=== PATIENT | female | born 1970 ===

== ENCOUNTER → 2020-08-04 14:28 | Outpatient (CLI) | payer OTHER | END | disposition home or self-care (01) | LOC: LAB 14:28 | PROVIDERS: ATTEND Orthopaedic Surgery | DX: D64.89 Other specified anemias (principal); E88.89 Other specified metabolic disorders; D68.8 Other specified coagulation defects; N39.0 Urinary tract infection, site not specified; Z22.322 Carrier or suspected carrier of Methicillin resistant Staphylococcus aureus; I10 Essential (primary) hypertension; I49.8 Other specified cardiac arrhythmias; Z76.89 Persons encountering health services in other specified circumstances ==

== ENCOUNTER → 2020-08-22 | Day surgery (SDC) | payer OTHER | END | disposition home or self-care (01) | LOC: ADM 08-15 10:00 → CIR.AMB 07:00 | PROVIDERS: ATTEND Orthopaedic Surgery | DX: M76.61 Achilles tendinitis, right leg (principal); M77.51 Other enthesopathy of right foot and ankle; Z20.828 Contact with and (suspected) exposure to other viral communicable diseases | CPT/HCPCS: 28300; 27650; 28002; C1776 ==

== ENCOUNTER → 2020-10-06 06:22 | Outpatient (CLI) | payer OTHER | END | disposition home or self-care (01) | LOC: LAB 06:22 | PROVIDERS: ATTEND Orthopaedic Surgery | DX: Z86.72 Personal history of thrombophlebitis (principal); E55.9 Vitamin D deficiency, unspecified; M85.88 Other specified disorders of bone density and structure, other site; E88.89 Other specified metabolic disorders; E56.1 Deficiency of vitamin K ==

== ENCOUNTER → 2020-10-09 06:30 | Outpatient (CLI) | payer OTHER | END | disposition home or self-care (01) | LOC: LAB 06:30 | PROVIDERS: ATTEND Orthopaedic Surgery | DX: Z86.72 Personal history of thrombophlebitis (principal) ==

== ENCOUNTER 2020-11-08 13:36 | Outpatient (CLI) | payer OTHER | END 2020-11-08 13:47 | disposition home or self-care (01) | LOC: RAD 13:36 | PROVIDERS: ATTEND Orthopaedic Surgery | DX: M76.61 Achilles tendinitis, right leg (principal); M79.671 Pain in right foot ==

== ENCOUNTER 2021-02-08 14:06 | Outpatient (CLI) | payer OTHER | END 2021-02-08 14:16 | disposition home or self-care (01) | LOC: RAD 14:06 | PROVIDERS: ATTEND Orthopaedic Surgery | DX: M25.571 Pain in right ankle and joints of right foot (principal) ==

== ENCOUNTER 2021-08-15 11:35 | Outpatient (CLI) | payer OTHER | END 2021-08-15 11:44 | disposition home or self-care (01) | LOC: LAB 11:35 | PROVIDERS: ATTEND Orthopaedic Surgery | DX: N28.89 Other specified disorders of kidney and ureter (principal) ==

== ENCOUNTER 2021-09-12 07:39 | Outpatient (CLI) | payer OTHER | END 2021-09-12 07:42 | disposition home or self-care (01) | LOC: RAD 07:39 | PROVIDERS: ATTEND Orthopaedic Surgery | DX: M76.61 Achilles tendinitis, right leg (principal) ==

== ENCOUNTER 2021-10-05 07:59 | Outpatient (CLI) | payer OTHER | END 2021-10-05 08:09 | disposition home or self-care (01) | LOC: MRI 07:59 | PROVIDERS: ATTEND Orthopaedic Surgery | DX: M76.61 Achilles tendinitis, right leg (principal) | CPT/HCPCS: 73722 ==